=== PATIENT | female | born 1970 | race Caucasian/White ===

== ENCOUNTER 2024-11-25 16:32 | Day surgery (SDC) | payer OTHER, SELFPAY ==
[2024-11-25 09:35] VITALS: BP 126/90
--- NOTE | 2024-11-25 09:58 | ED.GENMED ---
History of Present Illness
General
Chief Complaint: Abdominal Pain
Source: patient
Exam Limitations: none
Time Seen by Provider: 11/25/24 09:49
Nursing documentation reviewed up to this point in time: agreed with
History of Present Illness
History of Present Illness:
54-year-old female h/o appendectomy, on Zepbound weekly injections for the past 18 months presents for right upper quadrant pain that started suddenly at 10 PM last night, she had trouble sleeping due to the pain. She took antacids with no help.
She feels nauseous but has not vomited. She cannot find a comfortable position. Her pain is now 8/10. She has taken nothing for the pain. She denies fever but has felt chilled. Denies SOB or CP
Past History
Past History
ED Past Surgical History: Orthopedic
Social History
Tobacco: Non-smoker
Alcohol: Occasional
Personal:
Living: with family
Employment: Not employed
Review of Systems
Review of Systems
Allergies reviewed?: Yes
All Other Systems: ROS reviewed and negative except as documented in HPI and ROS
Constitutional: Denies fever
Respiratory: Denies trouble breathing
Cardiac: Denies chest pain
ABD/GI: Reports abdominal pain and nausea; Denies vomiting, diarrhea or constipated
: Denies dysuria, frequency, difficulty voiding or urgency
Musculoskeletal: Reports no symptoms
Skin: Reports no symptoms
Neurological: Reports no symptoms
Phy Exam
Physical Exam
Physical Exam:
GENERAL: No acute distress. A&Ox3.
CONSTITUTIONAL: Afebrile.
EYES: clear, conjunctivae normal
ENMT: moist mucus membranes
RESPIRATORY: Regular respirations, nonlabored, lungs clear.
CARDIOVASCULAR: Regular rate and rhythm, no murmurs, no rubs.
GI: Soft, tender RUQ, normal BS
MUSCULOSKELETAL: Moves with ease. Well perfused.
SKIN: Warm, dry, pink
PSYCH: Normal mood and affect. Well kept, interactive and appropriate
NEUROLOGIC: Awake, alert and oriented. No focal neurological deficits
Course
Orders/Labs/Results
Orders:
Orders
11/25/24 09:50
US Abdomen Complete/Upper Urgent
Comment:
Reason For Exam: RUQ pain
11/25/24 09:57
HYDROmorphone [Dilaudid] 1 mg IV NOW STA
Ondansetron Injectable [Zofran] 4 mg IV NOW STA
11/25/24 09:58
0.9% Sodium Chloride 1000 ml [Nss] 1,000 ml IV BOLUS
11/25/24 10:12
Complete Blood Count/With Diff Urgent
Comprehensive Metabolic Panel Urgent
Lipase Urgent
11/25/24 12:51
SURGICAL CONSULT Urgent
Consulting Provider: Sergio Wright
Was physician already notified: Yes
Reason for consult: dilated bile duct, RUQ pain, nl LFTs
11/25/24 13:15
Mrcp Without MR [MR Mrcp Without] Urgent
Comment:
Reason For Exam: RUQ pain, dilated bile duct
OK for patient to be off Cardiac Monitoring for MRI: Yes
Recent pill cam endoscopy?: No
11/25/24 13:25
Ketorolac [Toradol] 15 mg IV NOW STA
11/25/24 Dinner
Clear Liquid
At Your Request: Full Participation
11/25/24 15:59
Admit Patient As Directed
Co-Sign Provider:
Level of Care: Inpatient admission
Assign to:: Medical/Surgical
Physician / Group: Adriana / General Surg
Diagnosis: Cholecystitis
Reason for Hospitalization: Cholecystitis
Expected length of stay greater than two midnights?: Yes
ELOS- Estimated Length of Stay in days: 2
I certify the patient meets the requirements for IP care: Yes
Code Status As Directed
Resuscitation Status: Full Code
HYDROmorphone [Dilaudid] 0.5 mg IV Q2HPRN PRN
Ketorolac [Toradol] 10 mg IV Q6HPRN PRN
Ondansetron Injectable [Zofran] 4 mg IV Q6HPRN PRN
Activity As Directed
Activity Level: Ambulate
Anti-embolism (LIBRADO) Hose As Directed
Type: Thigh high
Intake/ Output As Directed
Frequency: Per unit guidelines
Vital Signs As Directed
Frequency: Per unit guidelines
PRN Pain Medication Management As Directed
May give lesser potent ordered pain med per pt: Yes
preference::
Protocol:: Medication orders for pain may be administered in a
manner that supports deferring to patient preference
when the pt is:
- Requesting an ordered lesser potent pain medication.
Least to most potent pain medications are defined
as: acetaminophen < NSAID < tramadol < opioids
(morphine, oxycodone, hydromorphone).
- Requesting a lesser dose of the same medication IF
ORDERED.
- Requesting a less intrusive route of administration
if both routes are prescribed by the provider (PO <
IV).
11/25/24 16:00
Normosol (Mult Electrolytes) [Normosol-R/Plasmalyte-A] 1,000 ml IV 100 mls/hr
Pneumatic Compression Sleeves As Directed
Type: Knee high
O2 Therapy [RESP] Routine
Titrate/Wean O2 to maintain O2 sat greater than (%): 90
Rx Incentive Spirometry [RESP] Routine
Frequency: q1h while awake
# of times per hour: 10
DX Deep Vein Thrombosis Video Routine
11/25/24 17:00
Flush (0.9% Sodium Chloride) [Flush (Nss)] See Dose Instructions IV PER PROTOCOL
11/25/24 18:00
Piperacillin/Tazo 3.375 Gram [Zosyn] 3.375 gram in 50 ml IV Q6H
11/25/24 20:00
Acetaminophen [Tylenol] 650 mg PO Q4HWA
11/26/24
RF Fluoroscopy, C-arm Routine
RF Operative Cholangiogram Routine
11/26/24 Breakfast
NPO
Allow oral meds: Yes
Allow clear liquids: No
11/26/24 07:38
Complete Blood Count/No Diff IN AM
Comprehensive Metabolic Panel IN AM
11/26/24 12:40
HYDROmorphone [Dilaudid] 0.25 mg IV PACU-Q5MPRN PRN
HYDROmorphone [Dilaudid] 0.5 mg IV PACU-Q5MPRN PRN
Meperidine [Demerol] 12.5 mg IV PACU-Q5MPRN PRN
Ondansetron Injectable [Zofran] 4 mg IV PACU-ONCEPRN PRN
Prochlorperazine [Compazine] 5 mg IV PACU-ONCEPRN PRN
Notify MD As Directed
Notify physician if: for SDS patients with known or suspected sleep obstructive sleep apnea, monitor in the
PACU.
Notify MD for any apneic/desaturation episodes
O2 Therapy [RESP] Urgent
Titrate/Wean O2 to maintain O2 sat greater than (%): 92
Special Instructions: -Provide supplemental oxygen to achieve O2 sat of 92% or greater.
-After 15 min, may wean O2 and discontinue if patient is able to maintain O2 sat of 92%
or greater during recovery period.
If patient is a discharge home, without oxygen therapy, notify anestheiologist if
unable to maintain O2 SAT of 92% or greater on room air for MD clearance.
11/26/24 12:45
Normosol (Mult Electrolytes) [Normosol-R/Plasmalyte-A] 1,000 ml IV PER PROTOCOL
11/26/24 Dinner
Low Fat
At Your Request: Full Participation
Does patient need a safe tray?: No
11/26/24 15:24
Level of Care Change As Directed
Level of Care: Post Proc/Surg Recovery
Reason for Overnight Stay: Standard of Care
11/26/24 16:01
Bupivacaine 0.25%Pf/Epinephrin [Sensorcaine-Epi 0.25%-0.0005] 30 ml .ROUTE .STK-MED ONE
Iohexol [Omnipaque] 50 ml .ROUTE .STK-MED ONE
11/26/24 16:04
Fentanyl Citrate/Pf [Sublimaze] 100 mcg .ROUTE .STK-MED ONE
Fentanyl Citrate/Pf [Sublimaze] 100 mcg .ROUTE .STK-MED ONE
11/26/24 16:05
Midazolam HCl [Versed] 2 mg .ROUTE .STK-MED ONE
11/26/24 16:52
Dexamethasone Sod Phosphate [Decadron] 20 mg .ROUTE .STK-MED ONE
Famotidine [Pepcid] 20 mg .ROUTE .STK-MED ONE
Lidocaine HCl/Pf [Xylocaine-Mpf 1% Vial] 50 mg .ROUTE .STK-MED ONE
Ondansetron Injectable [Zofran] 4 mg .ROUTE .STK-MED ONE
Phenylephrine HCl/0.9% NaCl [Reuben-Synephrine] 1,000 mcg .ROUTE .STK-MED ONE
Propofol [Diprivan] 20 ml .ROUTE .STK-MED
Rocuronium [place] [Rocuronium] 50 mg .ROUTE .STK-MED ONE
Sugammadex Sodium [Bridion] 200 mg .ROUTE .STK-MED ONE
11/26/24 16:58
HYDROmorphone [Dilaudid] 1 mg .ROUTE .STK-MED ONE
11/26/24 16:59
Glycopyrrolate [Robinul] 0.2 mg .ROUTE .STK-MED ONE
Ketamine 5 ml .ROUTE .STK-MED
11/26/24 17:02
OR Pathology Routine
Pre-Operative Diagnosis: Cholecystitis
Operative Procedure: Laparoscopic Cholecystectomy
Surgeon: Adriana
Circulating Nurse: Gregorio
Specimen Type: Gallbladder
11/26/24 17:16
Rocuronium [place] [Rocuronium] 50 mg .ROUTE .STK-MED ONE
11/26/24 18:00
Enoxaparin Sodium [Lovenox] 40 mg SC QPM
11/26/24 18:20
Oxycodone [Roxicodone] 5 mg PO Q4HPRN PRN
11/27/24 08:13
Discharge Patient As Directed
Is patient a candidate for the influenza vaccine?: No
Abnormal Lab Results
11/25/24 11/26/24
10:12 07:38
RBC 4.12 L 10^6/uL
(4.20-5.40)
Hct 36.2 L %
(37.0-47.0)
MCH 31.4 H pg
(27.0-31.0)
MPV 10.5 H fL 10.8 H fL
(7.4-10.4) (7.4-10.4)
Lymphocytes % 18.8 L %
(20.5-51.1)
BUN 20 H mg/dl
(7-17)
Glucose 106 H mg/dl
(70-99)
Calcium 10.6 H mg/dl
(8.4-10.2)
Total Protein 5.8 L g/dl
(6.3-8.2)
11/26/24 07:38
11/26/24 07:38
Vital Signs
Initial and Last Documented VS:
Initial Vital Signs
Temp Pulse Resp BP Pulse Ox
98.0 F 73 16 126/90 98
11/25/24 09:35 11/25/24 09:35 11/25/24 09:35 11/25/24 09:35 11/25/24 09:35
Last Documented Vital Signs
Temp Pulse Resp BP Pulse Ox
98.1 F 67 16 130/71 97
11/27/24 07:14 11/27/24 07:14 11/27/24 07:14 11/27/24 07:14 11/27/24 07:14
MDM/Problems Addressed
Differential Diagnosis Includes:
Cholecystitis, biliary colic, pancreatitis
MDM/Problems Addressed:
54-year-old female h/o appendectomy, on Zepbound weekly injections for the past 18 months presents for right upper quadrant pain that started suddenly at 10 PM last night, she had trouble sleeping due to the pain. She took antacids with no help.
She feels nauseous but has not vomited. She cannot find a comfortable position. Her pain is now 8/10. She has taken nothing for the pain. She denies fever but has felt chilled. Denies SOB or CP
Afebrile, NAD
CBC, CMP unremarkable
US upper abdomen radiology report read: IMPRESSION:
Cholelithiasis without sonographic evidence of acute cholecystitis.
Dilated common bile duct, measuring up to 8 mm. Recommend correlation with liver function tests.
Pancreas is obscured.
12:20 p.m.
Results discussed with GI Dr. Hurtado. She recommends surgery consult and MRCP
Dr. Wright surgery consulted
1:[address] Wright in, MRCP ordered
3:45 p.m.
Pt currently getting her MRCP
If pt has bile duct stone, admit to medicine
If pt has cholecystitis, admit to surgery
Case discussed with Dr. Powers who will assume care from this point
*Critical Care Note
Total Time (30-74mins, 75-104mins- exclusive of procedures): Not Applicable
ED Attending Note
-
Portions of this chart may have been created with voice recognition software.� Occasional wrong word or��sound alike� substitutions may have occurred due to the inherent limitations of voice recognition software.
Discharge Plan
Departure
Patient Disposition: Admit
Date of Disposition: 11/25/24
Time of Disposition: 16:30
Admit to: Med/Surg
Presentation/result/management discussed w/ accepting MD/DO: Gen surgery Dr. Wright
Patient with high blood pressure during this ER visit?: No
Condition: Good
Discharge Problem:
Acute cholecystitis
Interventions
Interventions:
*Risk Screen - Suicide Last Done: 11/25/24 15:50
*General Assessment Last Done: 11/25/24 15:50
*Neglect/Abuse Screening Last Done: 11/25/24 15:50
*ED- Fall Risk Assessment Last Done: 11/25/24 15:50
*ED COVID-19 Vaccine History Last Done: 11/25/24 15:50
*Nursing Disposition Last Done: 11/25/24 17:46
ZV-Fkroud-Ztmwjqkmgf Assessment Last Done: 11/25/24 10:14
Discharge Date and Time
Discharge Date/Time: 11/25/24 17:47
[2024-11-25] MEDS: ZOFRAN 4 MG IV (10:00)
[2024-11-25] MEDS: DILAUDID 1 MG IV (10:00)
[2024-11-25] MEDS: NSS 1000 IV (10:00)
[2024-11-25 10:32] LABS: ALT (SGPT) 13 U/L (0-35); AST (SGOT) 19 U/L (14-36); Albumin 4.3 g/dl (3.5-5.0); Alkaline Phosphatase 54 U/L (38-126); Blood Urea Nitrogen 20 mg/dl (7-17); Calcium 10.6 mg/dl (8.4-10.2); Carbon Dioxide 25 mmol/L (22-30); Chloride 106 mmol/L (98-107); Glucose 106 mg/dl (70-99); Lipase 151 U/L (23-300); Potassium 4.1 mmol/L (3.5-5.1); Sodium 139 mmol/L (135-145); Total Bilirubin 0.7 mg/dl (0.2-1.3); eGFR > 60.00
[2024-11-25 10:37] LABS: % Basophils 0.5 % (0-2); % Eosinophils 0.6 % (0-6); % Immature Granulocytes 0.2 % (0-0.5); % Lymphocytes 18.8 % (20.5-51.1); % Monocytes 6.3 % (1.7-9.3); % Neutrophils 73.6 % (42.2-75.2); Absolute Lymphocytes 1.3 10^3/uL (1.2-3.4); Absolute Monocytes 0.4 10^3/uL (0.1-0.6); Absolute Neutrophils 4.9 10^3/uL (1.4-6.5); Hematocrit 42.4 % (37.0-47.0); Hemoglobin 15.3 g/dL (12.0-16.0); Mean Corp Hgb Conc. 36.1 g/dL (33.0-37.0); Mean Corpuscular Hgb 31.4 pg (27.0-31.0); Mean Corpuscular Volume 87.1 fL (81.0-99.0); Mean Platelet Volume 10.5 fL (7.4-10.4); Nucleated Red Blood Cells % 0 %; Platelet Count 207 10^3/uL (130-400); Red Blood Cell Count 4.87 10^6/uL (4.20-5.40); White Blood Cell Count 6.6 10^3/uL (4.8-10.8)
[2024-11-25 12:32] VITALS: BP 122/68
--- NOTE | 2024-11-25 13:29 | CON.GS ---
Addendum entered and electronically signed by Sergio Wright MD 11/25/24 16:28:
MRI findings reviewed. No evidence of choledocholithiasis. Radiographic findings consistent with cholecystitis which fits more with the patient's clinical presentation. Patient and updated by phone. added to the OR schedule for tomorrow
for laparoscopic cholecystectomy with possible cholangiogram. The procedure itself, as well as the risks, benefits, and alternatives was discussed. Specifically, we discussed risks of bleeding, infection, injury to surrounding structures (bowel,
bile ducts), CBD injury, need for open procedure. Typical postprocedural recovery including pain management and the 10 to 20% risks of fluctuations in GI function was discussed. All questions answered.
-- Added to OR schedule for laparoscopic cholecystectomy with IOC tomorrow
-- Clears as tolerated, NPO PM
-- Abx: Zosyn
Original Note:
Medical History
-
Chief Complaint: RUQ abdominal pain
History of Present Illness:
Patient is a 54 yo F with a PMH of obesity (on Zepbound) and s/p open appendectomy who presents with 12 to 24 hours of RUQ abdominal pain. Ms. Phillips states that her symptoms began acutely yesterday evening at approximately 10 PM. She reports
having a meal consisting of a salad, perogies, and a beef medallion yesterday evening for dinner. She reports severe RUQ abdominal pain which radiates to her back. Symptoms have mildly improved with Dilaudid administration, however, have returned
over the past hour and with exam. No fevers, subjective chills. No nausea or vomiting denies any jaundice, pale stools, or tea colored urine. She denies any prior attacks of similar pain. Family history notable for a mother postcholecystectomy.
She has lost approximately 60 pounds over the past 12 to 18 months on Zepbound.
Past Medical History
Past Medical History: Other (Obesity)
Past Surgical History: Appendectomy
Social History
Tobacco: Non-Smoker
Alcohol: Occasional
Drug: None
Personal:
Living: With Family
Employment: Not Employed
Family History
Family History: Other (Mother post-cholecystectomy)
Allergies / Home Medications
Allergy/AdvReac Type Severity Reaction Status Date / Time
No Known Allergies Allergy Verified 11/25/24 09:38
Review of Systems
-
A 10 point review of systems was completed, and was negative except as per HPI.
Physical Exam
Vital Signs
Temp Pulse Resp BP Pulse Ox
98.0 F 54 16 122/68 100
11/25/24 12:32 11/25/24 12:32 11/25/24 12:32 11/25/24 12:32 11/25/24 12:32
Lab Results
11/25/24 10:12
11/25/24 10:12
WBC 6.6 10^3/uL (4.8-10.8) 11/25/24 10:12
Hgb 15.3 g/dL (12.0-16.0) 11/25/24 10:12
Hct 42.4 % (37.0-47.0) 11/25/24 10:12
Plt Count 207 10^3/uL (130-400) 11/25/24 10:12
Abs Immat Gran (auto) 0.0 10^3/uL (0-0.05) 11/25/24 10:12
Neutrophils % 73.6 % (42.2-75.2) 11/25/24 10:12
Physical Exam
General: Well Developed, Well Nourished and No Apparent Distress
HEENT: Normocephalic and Anicteric
Respiratory: Non Labored Respirations
Cardiac: Regular Rhythm
GI: Soft, Non Distended, Tender (RUQ, positive Daniels's sign), Obese and Other (Nonperitoneal (no rebound or guarding))
Skin: Warm and Dry
Neuro: Nonfocal/Grossly Intact
Data Reviewed
-
Ultrasound: Image Personally Visualized and interpreted and Report Reviewed by me
Labs: Labs Reviewed by me
Assessment / Plan
-
Patient is a 54 yo F p/w likely symptomatic cholelithiasis versus choledocholithiasis
The natural history and pathophysiology of biliary and stone disease was briefly discussed. Anatomy was reviewed. Workup thus far including labs and ultrasound imaging was reviewed. GI consult noted, plan for MRI of the abdomen given her CBD
dilation. Pending these findings she will either need further GI evaluation and possible ERCP if choledocholithiasis confirmed. If no stone visualized within the CBD then would recommend cholecystectomy; at this time recommend during this
admission given her persistent discomfort. Mrs. Phillips agrees. All questions answered.
-- MRI abdomen to further work-up CBD dilation
-- Timing of laparoscopic cholecystectomy TBD (likely tomorrow pending MRI findings)
-- NPO, IVF
-- Pain control: Tylenol, Toradol, IV Dilaudid PRN
-- Abx: Zosyn
[2024-11-25] MEDS: TORADOL 15 MG IV (13:32)
[2024-11-25 15:47] VITALS: BP 122/64
[2024-11-25 17:45] VITALS: BP 138/78
[2024-11-25 18:02] VITALS: BMI 26.6
[2024-11-25] MEDS: ZOSYN 50 IV ×2 (18:24→23:58)
[2024-11-25] MEDS: NORMOSOL-R/PLASMALYTE-A 1000 IV (18:24)
[2024-11-25] MEDS: TYLENOL 650 MG PO ×2 (18:48→23:58)
[2024-11-25] MEDS: DILAUDID 0.5 MG IV (21:10)
[2024-11-25 23:31] VITALS: BP 101/60
[2024-11-26] VITALS (11 sets, daily range): BP systolic 110–148; BP diastolic 69–79
[2024-11-26] MEDS: DILAUDID 0.5 MG IV ×7 (00:15→19:36)
[2024-11-26] MEDS: TYLENOL 650 MG PO ×6 (04:59→23:10)
[2024-11-26] MEDS: NORMOSOL-R/PLASMALYTE-A 1000 IV ×2 (05:03→13:09)
[2024-11-26] MEDS: ZOSYN 50 IV ×3 (06:24→19:28)
[2024-11-26 08:07] LABS: Hematocrit 36.2 % (37.0-47.0); Hemoglobin 12.7 g/dL (12.0-16.0); Mean Corp Hgb Conc. 35.1 g/dL (33.0-37.0); Mean Corpuscular Hgb 30.8 pg (27.0-31.0); Mean Corpuscular Volume 87.9 fL (81.0-99.0); Mean Platelet Volume 10.8 fL (7.4-10.4); Platelet Count 160 10^3/uL (130-400); Red Blood Cell Count 4.12 10^6/uL (4.20-5.40)
[2024-11-26 08:37] LABS: ALT (SGPT) 10 U/L (0-35); AST (SGOT) 15 U/L (14-36); Albumin 3.6 g/dl (3.5-5.0); Alkaline Phosphatase 44 U/L (38-126); Blood Urea Nitrogen 14 mg/dl (7-17); Calcium 8.7 mg/dl (8.4-10.2); Carbon Dioxide 25 mmol/L (22-30); Chloride 106 mmol/L (98-107); Estimated Creatinine Clearance 83 ml/min; Glucose 92 mg/dl (70-99); Potassium 3.6 mmol/L (3.5-5.1); Sodium 138 mmol/L (135-145); Total Bilirubin 0.9 mg/dl (0.2-1.3); Total Protein 5.8 g/dl (6.3-8.2); eGFR > 60.00
--- NOTE | 2024-11-26 10:08 | CM ---
CM following re: discharge planning.
Reviewed p[t's chart, met with pt.
Pt is a 54 year old female,admitted with primary dx of Acute cholecystitis. Per Surgery, OR today for laparoscopic cholecystectomy.
Pt reports she lives with and a father 2SH, 2 steps to enter, has 2 supportive children. 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
PCP: Dr. Duke
Pharmacy: [facility] [place]
D/C plan: home with anticipated no needs. Spouse to transport at discharge.
CM will follow with discharge plan updates as needed.
--- NOTE | 2024-11-26 15:28 | W.SUR.PREOP ---
Pre-Operative Surgical Note
-
I have examined this patient prior to the performance of the scheduled procedure.
The patient's condition is unchanged from the time of the current History and
Physical and the patient is able to undergo the scheduled procedure.
--- NOTE | 2024-11-26 16:08 | W.PN.GS2 ---
Today's Communication / Plan
-
-- Lap zeeshan with IOC
Assessment / Plan
-
Patient is a 54 yo F p/w acute cholecystitis
AVSS
Labs unremarkable
Clinical history, physical exam, and radiographic findings consistent with a diagnosis of acute cholecystitis. Plan for a laparoscopic cholecystectomy with possible IOC. The procedure itself, as well as the risks, benefits, and alternatives has
been discussed. All questions answered. Consent signed.
-- Lap zeeshan with IOC
-- NPO
-- IVF
-- Zosyn
-- Pain control: Tylenol, Toradol, IV Dilaudid PRN
Subjective Data
-
Date of Service: November 26, 2024
Changes. Continues to have some RUQ pain. No fevers. No nausea or vomiting
Objective Data
-
Intake and Output
11/25/24 11/26/24 11/27/24
06:59 06:59 06:59
Intake Total 520 / 520
Balance 520 / 520
Intake:
Oral fluids 520 / 520
Other:
Number of approximated MODERATE 2
amounts of urine
Vital Signs
Temp Pulse Resp BP Pulse Ox
98.0 F 60 16 110/69 97
11/26/24 07:45 11/26/24 07:45 11/26/24 07:45 11/26/24 07:45 11/26/24 07:45
Lab Results
11/26/24 07:38
11/26/24 07:38
Calcium 8.7 mg/dl (8.4-10.2) D 11/26/24 07:38
Total Bilirubin 0.9 mg/dl (0.2-1.3) 11/26/24 07:38
AST 15 U/L (14-36) 11/26/24 07:38
ALT 10 U/L (0-35) 11/26/24 07:38
Alkaline Phosphatase 44 U/L (38-126) 11/26/24 07:38
Total Protein 5.8 g/dl (6.3-8.2) L 11/26/24 07:38
Albumin 3.6 g/dl (3.5-5.0) 11/26/24 07:38
Physical Exam
-
Gen: NAD
Abd: soft, tender in RUQ, ND, obese, non-peritoneal
Patient has a wallace catheter: No
Patient has a central line: No
--- NOTE | 2024-11-26 18:18 | W.IMMPOSTOP ---
Surgical Immed Post Op Note
-
Primary Surgeon: Adriana
Assisting Surgeon: JADON Longoria
Pre-op Diagnosis: Acute cholecystitis
Post-op Diagnosis: Acute cholecystitis
Procedure Performed: Laparoscopic cholecystectomy with IOC
Anesthesia Type: General
Specimen / Cultures:
1. Gallbladder
Estimated Blood Loss: 7 cc
Complications: None
Operative Findings:
1. Acutely inflamed and distended GB, dilated, thickened wall and edema
2. Critical view of safety
3. IOC with anatomy confirmed and no filling defects
--- NOTE | 2024-11-26 20:40 | PTCARENOTE ---
Received patient from PACU in bed. 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 Medicated with Dilaudid as ordered. stable vitals. AAOx3. Family at bedside. POC reviewed with patient and family.
[2024-11-26] MEDS: ROXICODONE 5 MG PO (23:09)
[2024-11-27] MEDS: NORMOSOL-R/PLASMALYTE-A 1000 IV (01:00)
[2024-11-27] MEDS: ZOSYN 50 IV ×2 (01:00→05:08)
[2024-11-27 03:00] VITALS: BP 142/83
[2024-11-27] MEDS: TYLENOL 650 MG PO ×2 (04:41→08:19)
[2024-11-27] MEDS: ROXICODONE 5 MG PO (04:45)
[2024-11-27 07:14] VITALS: BP 130/71
--- NOTE | 2024-11-27 08:10 | W.PN.GS2 ---
Today's Communication / Plan
-
-- DC today
Assessment / Plan
-
Patient is a 54 yo F p/w acute cholecystitis
POD#1 s/p laparoscopic cholecystectomy with IOC
AVSS
Recovering well. No postoperative concerns. Plan for discharge today.
-- LFD
-- HLIV
-- Pain control: Tylenol, Toradol, Oxycodone
-- DVT: Lovenox, SCDs
-- DC today
Subjective Data
-
Date of Service: November 27, 2024
Major discharge complaints. Pain well-controlled. No nausea or vomiting. No fevers. Voiding. Ambulating.
Objective Data
-
Intake and Output
11/26/24 11/27/24 11/28/24
06:59 06:59 06:59
Intake Total 520 / 520 125 / 125 2160 / 2160
Balance 520 / 520 125 / 125 2160 / 2160
Intake:
Oral fluids 520 / 520 960 / 960
IV fluids (Total) 125 / 125 1200 / 1200
Normosol 125 / 125
Other:
Number of approximated MODERATE 2
amounts of urine
How many times incontinent 3
MODERATE amount urine
Vital Signs
Temp Pulse Resp BP Pulse Ox
98.1 F 67 16 130/71 97
11/27/24 07:14 11/27/24 07:14 11/27/24 07:14 11/27/24 07:14 11/27/24 07:14
Lab Results
11/26/24 07:38
11/26/24 07:38
Calcium 8.7 mg/dl (8.4-10.2) D 11/26/24 07:38
Total Bilirubin 0.9 mg/dl (0.2-1.3) 11/26/24 07:38
AST 15 U/L (14-36) 11/26/24 07:38
ALT 10 U/L (0-35) 11/26/24 07:38
Alkaline Phosphatase 44 U/L (38-126) 11/26/24 07:38
Total Protein 5.8 g/dl (6.3-8.2) L 11/26/24 07:38
Albumin 3.6 g/dl (3.5-5.0) 11/26/24 07:38
Physical Exam
-
Gen: NAD
Abd: soft, appropriately tender, ND, non-peritoneal, incisions c/d/i - no erythema, ecchymosis or drainage
Patient has a wallace catheter: No
Patient has a central line: No
--- NOTE | 2024-11-27 08:13 | W.DS.TRANS ---
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
-
Discharge Instructions:
Discharge Diagnosis/Procedures Acute cholecystitis s/p laparoscopic
cholecystectomy with intraoperative
cholangiogram
Diet Low Fat,Regular
Additional Diets If issues with bloating or loose stools follow a
low-fat diet
Activity No strenuous activity
Additional Activity No heavy lifting (>20 lbs) or strenuous
activities for 2 weeks postoperatively
Driving Restrictions No driving if too sore or taking narcotics
Bathing Restrictions OK to Shower
Wound Care Keep incisions clean and dry. Glue will flake
off in 2 to 3 weeks. Stitches will dissolve.
Use ice to the abdomen to reduce any bruising or
swelling.
Instructions:
Stand-Alone Forms:
Changes to Home Medications: Yes
Discharge Medications:
DC Medications w/original date entered in [employer]
diphenhydramine HCl 25 mg capsule (Benadryl) 50 mg PO HS SLEEP/ANTIHISTAMINE 11/25/24
tirzepatide (weight loss) 7.5 mg/0.5 mL subcutaneous pen injector (Zepbound) 7.5 mg SC TH WEIGHT LOSS 11/25/24
acetaminophen 325 mg tablet 650 mg (2 x 325 mg) PO Q4HPRN PRN mild pain #1 tab 11/26/24
ibuprofen 200 mg tablet 400 - 600 mg (2 - 3 x 200 mg) PO Q6HPRN PRN moderate pain #1 tab 11/26/24
oxycodone 5 mg tablet,oral ONLY (not feeding tubes) 5 mg PO Q6H PRN severe pain #10 ea 11/26/24
Home Medication Changes
Pending Results: No
== END 2024-11-27 09:37 | disposition home or self-care (01) ==
LOC: PACU 16:32
PROVIDERS: Internal Medicine; Registered Nurse; ATTENDING PHYSICIAN Surgery; EMERGENCY PHYSICIAN Emergency Medicine; FAMILY PHYSICIAN Physician Assistant
PROC: 0FT44ZZ Resection of Gallbladder, Percutaneous Endoscopic Approach (ICD-10-PCS; 2024-11-26)
PROC: BF131ZZ Fluoroscopy of Gallbladder and Bile Ducts using Low Osmolar Contrast (ICD-10-PCS; 2024-11-26)
DX: K80.00 Calculus of gallbladder with acute cholecystitis without obstruction (principal); E66.9 Obesity, unspecified; Z68.26 Body mass index [BMI] 26.0-26.9, adult; Z79.85 Long-term (current) use of injectable non-insulin antidiabetic drugs
CPT/HCPCS: 47563; 74300; 76700; 88304; 74181; 76000; 80053; 83690; 85025; 85027; 99285; A4300